=== PATIENT | female | born 1960 | race Caucasian/White ===

== ENCOUNTER → 2016-02-28 | Outpatient (CLI) | payer BC ==
[~2016-02-28] MED LIST: ASPEC81 PO; DILT120C11 PO
--- NOTE | 2016-02-28 12:46 | MAMMOGRAPHY REPORT ---
ULTRASOUND OF LEFT BREAST: 02/28/2016 CLINICAL HISTORY: Callback from screening mammogram for 2 circumscribed left breast masses. COMPARISON: Comparison is made to exams dated: 12/28/2014 mammogram, 12/22/2013 mammogram, 3 mammogram - [facility], and 09/23/2011 mammogram - [facility]. TECHNIQUE: Real-time targeted ultrasound of the left breast was performed. FINDINGS: Targeted ultrasound was performed of the left upper outer quadrant and left 6:00 breast, in the margo on of the mammographic masses seen on the screening mammogram. In the left breast at 2:00, 5 cm fro m the nipple, there is an oval circumscribed anechoic mass with a thin internal septation, measuring 9 x 4 x 8 mm. This corresponds with one of the circumscribed mammographic masses and is consistent with a benign cyst. In the left breast at 6:00, 4 cm from the nipple, there is an oval anechoic ci rcumscribed mass with a thin internal septation, measuring 11 x 3 x 9 mm. This corresponds with the other circumscribed mammographic mass and is consistent with a benign cyst. IMPRESSION: ACR BI-RADS CATEGORY 2: BENIGN The two mammographic masses in the left breast corresponding with benign cysts on ultrasound. There is no sonographic evidence of malignancy. A 1 year screening mammogram is recommended. The patient was verbally notified of the results. Jo Billings M.D. /:02/28/2016 08:32:04 Insurance Actuary: Jo Billings MD, [facility] letter sent: Normal 1/2 BI-RADS Code: ACR BI-RADS Category 2: Benign
== END | disposition home or self-care (01) ==
LOC: C.MAMM 08:00
PROVIDERS: ATTEND Obstetrics & Gynecology
DX: R92.8 Other abnormal and inconclusive findings on diagnostic imaging of breast (principal); N63 Unspecified lump in breast

== ENCOUNTER 2016-03-24 10:35 | Inpatient (IN) | payer BC ==
[~2016-03-24] VITALS: Ht 167.6 cm; Wt 78.4 kg
[2016-03-24 16:31] VITALS: BP 122/79; PULSE 101; TEMP 36.8; Ht 167.6 cm; Wt 78.4 kg
[2016-03-24] MEDS ORDERED: NURSING VERBAL MED ORDER ONE (16:45)
[2016-03-24] MEDS ORDERED: DILTIAZEM HCL 60 MG TAB PO SCH (17:15)
[2016-03-24] MEDS ORDERED: ONDANSETRON INJ 2 MG/ML 2 ML VIAL IV PRN (17:30)
[2016-03-24] MEDS ORDERED: ACETAMINOPHEN 325 MG TAB PO PRN (17:30)
--- NOTE | 2016-03-24 18:27 | DIAGNOSTIC IMAGING REPORT ---
TWO VIEW CHEST CLINICAL HISTORY: Atrial fibrillation. FINDINGS: PA and lateral chest radiographs are obtained. No prior studies are available for comparison at the time of dictation. The cardiomediastinal silhouette is unremarkable. The lungs appear hyperinflated and hyperlucent with flattening of the diaphragm and increased retrosternal clear space suggesting obstructive physiology. Nonspecific interstitial thickening is noted. There are bibasilar airspace opacities. The upper lobes appear clear. No pleural effusion is identified. There is no pneumothorax. The skeletal structures are osteopenic. The bony thorax appears intact. IMPRESSION: 1. Findings suggest obstructive physiology. 2. There are bibasilar airspace opacities. This could represent atelectasis, developing pneumonia, and/or aspiration pneumonitis Clinical correlation will be required. Radiographic follow-up to resolution is recommended. Electronically signed by: Stoney Aj M.D. 03/24/2016 6:26 PM Dictated Date/Time: 03/24/2016 6:24 PM
--- NOTE | 2016-03-24 19:10 | HISTORY & PHYSICAL EXAMINATION ---
DATE OF ADMISSION: 03/24/2016 CHIEF COMPLAINT: Palpitations. HISTORY OF PRESENT ILLNESS: Mrs. Cooley is a very pleasant 55-year-old woman with no real significant past medical history who was transferred from [facility] in the setting of SVT. The night prior to admission, the patient states that she developed pounding in her chest around midnight. This persisted for up to an hour but eventually she was able to fall asleep. She woke in the morning and still noted palpitations. While standing in the mirror getting ready for work she felt increased palpitations and questionable presyncope. As a result, she presented to the Emergency Department. In the ED she was initially in sinus tachycardia with frequent PACs, and heart rates in the 100s-110s. She had periods of irregular SVT up into the 140s to 160s for which she received IV diltiazem. Heart rate remained variable with heart rate occasionally in the 160s for which she was treated with adenosine 6 mg and later 12 mg. She also had brief episodes in the 200s and with this she became relatively hypotensive with systolic pressures in the 90s. The ED had prepared to cardiovert the patient, however, she eventually slowed on her own and then was placed on a diltiazem drip with rate control in the 90s to 100s. Eventually approximately 2 hours after her presentation she converted to sinus rhythm prior to transfer to [facility]. At time of arrival, the patient is feeling well. Denies any palpitations, chest pain or shortness of breath. Prior to this event she states she had been in the usual state of health. She did have a diarrheal illness approximately 1 week ago, which persisted for several days and led to a 6 pound weight loss. Otherwise, no new medications, no new habits and no other recent illnesses. She does state that for the last month or so she has had episodes at night where she feels warm all over with sweats. She had been attributing to potentially hot flashes associated with menopause. PAST MEDICAL HISTORY: Osteoarthritis. PAST SURGICAL HISTORY: Status post abdominal hysterectomy. FAMILY HISTORY: Mother had a history of coronary artery disease including requiring stents and bypass surgery in her early 60s. Otherwise, no premature coronary artery disease or other history of premature or sudden cardiac . 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 She is . She has 2 grown children. She rarely drinks alcohol and is a never smoker. Denies any illicit drugs. REVIEW OF SYSTEMS: Ten point review of systems was completed and otherwise negative or listed in HPI. PHYSICAL EXAMINATION: VITAL SIGNS: Temperature 36.8, pulse 101, respiratory rate is 18, her blood pressure is 122/79. GENERAL: The patient appears well, in no acute distress. HEENT: Her sclerae are anicteric. Oropharynx is clear. Mucous membranes are moist. NECK: Supple with no lymphadenopathy. LUNGS: Clear to auscultation bilaterally. CARDIAC: She has a regular rate and rhythm with no murmurs, rubs or gallops. ABDOMEN: Soft, nontender, nondistended with positive bowel sounds. EXTREMITIES: Warm. She has no significant lower extremity edema. She has intact distal pulses. SKIN: Shows no rashes or lesions. NEUROLOGIC: Cranial nerves II through XII are grossly intact. Remainder of exam is nonfocal. LABORATORY DATA: Lab work obtained from [facility] shows a white blood cell count of 5.2, hemoglobin 14.8, platelets of 222. She had a sodium of 141, potassium of 3.8, bicarbonate of 28, BUN of 12, creatinine of 1.0, calcium was 8.5. LFTs were within normal limits. TSH was 2.0. Free T4 was normal at 1.0. Magnesium was 2.2. EKGs: Presenting EKG shows sinus tachycardia with frequent PACs and a ventricular rate of 116. Subsequent EKGs show SVT irregular with possible underlying flutter or P waves, atrial fibrillation versus slowly flutter versus atrial tachycardia. Subsequent EKG shows irregular SVT at a rate of 165, question underlying T waves, question atrial tachycardia versus atrial flutter versus AFib. Telemetry strips reviewed from outside hospital, there is one episode of regular narrow-complex tachycardia with what appears to be a short RP interval, potentially consistent with a reentrant SVT. EKG at presentation here shows sinus rhythm with no dynamic ST changes in otherwise normal. IMPRESSION AND PLAN: 1. Supraventricular tachycardia. Patient with first episode of palpitations last night and again this morning noted to have supraventricular tachycardia on presentation at [facility]. I have reviewed patient's EKG and telemetry strips. The exact rhythm is unclear. Some EKGs are irregular and do appear to be consistent with atrial fibrillation; however, there is suggestion of underlying P or flutter waves potentially suggestive of atrial tachycardia versus slow atrial flutter. In addition, there is one telemetry strip potentially consistent with a faster reentrant tachycardia. Regardless of exact diagnosis management going forward will be similar. She has converted to normal sinus rhythm and will plan to continue on p.o. diltiazem, will give 60 mg p.o. now and continue with 30 mg q.i.d. likely with consolidation to daily dosing prior to discharge. Will check a chest x-ray and plan for echocardiogram in the morning. Assuming echo largely unremarkable, have assured the patient that this SVT is likely benign and can be followed as an outpatient. Likely will discharge on diltiazem and low dose aspirin with plan for cardiology follow-up. ALEXIA
[2016-03-24 20:19] VITALS: BP 102/71; PULSE 91; TEMP 36.8; O2SAT 97
[2016-03-24] MEDS: SODIUM CHLORIDE 0.9% 1000ML 1,000 ML IV SCH (21:13)
[2016-03-24] MEDS: DILTIAZEM HCL 30 MG TAB PO SCH (21:14)
[2016-03-25] VITALS: BP 102/70; PULSE 88; TEMP 36.6; O2SAT 98
[2016-03-25 04:00] VITALS: BP 113/73; PULSE 85; TEMP 36.5; O2SAT 98
[2016-03-25 07:05] LABS: BASO % 1.1 %; BASO ABS # 0.05 K/uL (0-0.2); COMPLETE YES; EOS % 2.9 %; HEMATOCRIT 40.4 % (37-47); LYMPH % 36.2 %; LYMPH ABS # 1.62 K/uL (1.2-3.4); MEAN CELL VOLUME 87.6 fL (80-100); MEAN CORPUSCULAR HEMOGLOBIN 29.1 pg (25-34); MEAN CORPUSCULAR HGB CONC 33.2 g/dl (32-36); MEAN PLATELET VOLUME 9.7 fL (7.4-10.4); MONO % 13.4 %; NEUT % 46.4 %; PLATELET COUNT 209 K/uL (130-400); RED BLOOD COUNT 4.61 M/uL (4.2-5.4); WHITE BLOOD COUNT 4.47 K/uL (4.8-10.8)
[2016-03-25 07:41] LABS: ALT/SGPT 33 U/L (12-78); AST/SGOT 13 U/L (15-37); BLOOD UREA NITROGEN 10 mg/dl (7-18); BUN/CREATININE RATIO 13.5 (10-20); CALCIUM 8.8 mg/dl (8.5-10.1); CARBON DIOXIDE 26 mmol/L (21-32); CHLORIDE 110 mmol/L (98-107); CREATININE 0.77 mg/dl (0.60-1.20); GLUCOSE 92 mg/dl (70-99); MAGNESIUM 2.3 mg/dl (1.8-2.4); SODIUM 144 mmol/L (136-145)
[2016-03-25 07:43] LABS: ALKALINE PHOSPHATASE 60 U/L (45-117)
[2016-03-25 08:24] VITALS: BP 114/78; PULSE 82; TEMP 36.7; O2SAT 100
[2016-03-25] MEDS: DILTIAZEM HCL 30 MG TAB PO SCH ×2 (09:48→12:38)
[2016-03-25] MEDS: SODIUM CHLORIDE 0.9% 1000ML 1,000 ML IV SCH (09:48)
--- NOTE | 2016-03-25 09:55 | ECHOCARDIOGRAM REPORT ---
*NOTICE TO RECEIVING REPUBLICAN AGENCY This information is strictly Confidential and protected under [place] law. [place] law prohibits you from making any further disclosure of this information unless further disclosure is expressly permitted by the written consent of the person to whom it pertains or is authorized by law. A general authorization for the release of medical or other information is not sufficient for this purpose. Hospital accepts no responsibility if the information is made available to any other person, INCLUDING THE PATIENT. Interpretation Summary * Name: ALEXANDRIA CHISHOLM Study Date: 03/25/2016 08:20 AM BP: 113/73 mmHg * Patient Location: C.2T\S\E220\S\1 HR: 85 * : 1960 (M/d/yyyy) Gender: Female Height: 65 in * Age: 55 yrs Ethnicity: CA Weight: 174 lb * Ordering Physician: Arnold Urbano * Performed By: Dipika Shen RDCS * * Reason For Study: Supraventricular Tachycardia * BSA: 1.9 m2 * -- Conclusions -- * 1. Normal LV size and wall thickness. * 2. Normal LV function. LVEF 55-60%. No regional wall motion abnormalities. * 3. Normal RV size and function. * 4. Mitral valve/chordal structures thickened but no clear valvular pathology. * 5. Normal estimated CVP. * 6. No prior studies for comparison. Procedure Details * A complete two-dimensional transthoracic echocardiogram was performed (2D, M-mode, Doppler and color flow Doppler). Left Ventricle * The left ventricle is normal in size. * There is normal left ventricular wall thickness. * Ejection Fraction = 55-60%. Right Ventricle * The right ventricle is grossly normal size. * The right ventricular systolic function is normal as assessed by tricuspid annular plane systolic excursion (TAPSE) (normal >1.5 cm). Atria * The left atrial size is normal. * Right atrial size is normal. * No ASD detected; PFO is not assessed. Mitral Valve * The mitral valve leaflets appear thickened, but open well. * valve chordae thickened * There is no mitral valve stenosis. * Significant mitral regurgitation is absent. Aortic Valve * The aortic valve opens well. * The aortic valve is trileaflet. * No hemodynamically significant valvular aortic stenosis. * There is no significant aortic regurgitation. Pulmonic Valve * The pulmonary valve is inadequately visualized, but the Doppler data is adequate for interpretation. * Pulmonic stenosis is absent. * There is no pulmonic valvular regurgitation. Great Vessels * The aortic root and proximal ascending aorta are normal sized. * No Doppler or imaging evidence of an aortic coarctation. Pericardium/Pleural * There is no pericardial effusion. Great Vessels * Normal inferior vena cava size and collapsability with sniff indicates a normal right atrial pressure of 3 mmHg MMode 2D Measurements and Calculations IVSd 0.83 cm IVSs 0.99 cm LVIDd 4.2 cm LVIDs 2.4 cm LVPWd 0.71 cm LVPWs 1.4 cm IVS/LVPW 1.2 FS 42.8 % EDV(Teich) 79.9 ml ESV(Teich) 20.6 ml EF(Teich) 74.2 % EDV(cubed) 75.6 ml ESV(cubed) 14.2 ml EF(cubed) 81.3 % % IVS thick 19.3 % % LVPW thick 96.1 % LV mass(C)d 97.7 grams LV mass(C)dI 52.4 grams/m\S\2 LV mass(C)s 81.2 grams LV mass(C)sI 43.6 grams/m\S\2 SV(Teich) 59.3 ml SI(Teich) 31.8 ml/m\S\2 SV(cubed) 61.5 ml SI(cubed) 33.0 ml/m\S\2 Ao root diam 2.9 cm Ao root area 6.7 cm\S\2 LA dimension 2.9 cm LA/Ao 10 LVAd ap4 25.7 cm\S\2 LVLd ap4 8.2 cm EDV(MOD-sp4) 69.8 ml EDV(sp4-el) 68.6 ml LVAs ap4 15.8 cm\S\2 LVLs ap4 6.9 cm ESV(MOD-sp4) 34.0 ml ESV(sp4-el) 30.7 ml EF(MOD-sp4) 51.3 % EF(sp4-el) 55.2 % LVAd ap2 24.5 cm\S\2 LVLd ap2 8.8 cm EDV(MOD-sp2) 59.6 ml EDV(sp2-el) 58.0 ml LVAs ap2 15.1 cm\S\2 LVLs ap2 7.6 cm ESV(MOD-sp2) 28.2 ml ESV(sp2-el) 25.4 ml EF(MOD-sp2) 52.6 % EF(sp2-el) 56.1 % LVLd %diff 7.3 % EDV(MOD-bp) 66.9 ml LVLs %diff 8.6 % ESV(MOD-bp) 32.4 ml EF(MOD-bp) 51.6 % SV(MOD-sp4) 35.8 ml SI(MOD-sp4) 19.2 ml/m\S\2 SV(MOD-sp2) 31.4 ml SI(MOD-sp2) 16.8 ml/m\S\2 SV(MOD-bp) 34.5 ml SI(MOD-bp) 18.5 ml/m\S\2 SV(sp4-el) 37.9 ml SI(sp4-el) 20.3 ml/m\S\2 SV(sp2-el) 32.5 ml SI(sp2-el) 17.5 ml/m\S\2 Doppler Measurements and Calculations MV E max cal 58.7 cm/sec MV A max cal 74.1 cm/sec MV E/A 0.79 MV dec time 0.23 sec Ao V2 max 131.9 cm/sec Ao max PG 7.0 mmHg Ao max PG (full) 1.4 mmHg LV V1 max PG 5.6 mmHg LV V1 max 117.9 cm/sec PA V2 max 88.1 cm/sec PA max PG 3.1 mmHg
[2016-03-25 10:59] VITALS: O2SAT 100
[2016-03-25 12:12] VITALS: BP 99/68; PULSE 88; TEMP 36.5; O2SAT 99
[2016-03-25] MEDS ORDERED: DILT120C11 PO (12:15)
[2016-03-25] MEDS ORDERED: ASPEC81 PO (12:15)
--- NOTE | 2016-03-25 12:18 | Discharge Instructions ---
Discharge Instructions Admission Reason for Admission: SVT Discharge Discharge Diagnosis / Problem: SVT Discharge Goals Goal(s): Specific goals (Return to normal activities. No futher palpitations) Activity Recommendations Activity Limitations: resume your previous activity Lifting Limitations: none Exercise/Sports Limitations: none May Resume Sexual Activity: when tolerated Shower/Bathe: no limitations Driving or Machine Use: no limitations None . Instructions / Follow-Up Instructions / Follow-Up Follow-up with primary care in next 1-2 weeks Follow-up with Dr. Urbano Cardiology in 1 month. Current Hospital Diet Patient's current hospital diet: AHA Diet (Heart Healthy) Discharge Diet Recommended Diet: Regular Diet, Low Fat Diet Procedures Procedures Performed: None Pending Studies Studies pending at discharge: no Work Instructions Return To Work: 1 day Medical Emergencies . Who to Call and When: Medical Emergencies: If at any time you feel your situation is an emergency, please call 911 immediately. . Non-Emergent Contact Non-Emergency issues call your: Primary Care Provider, [employer] [facility] Contact Number: Dr. Urbano [phone] Call Non-Emergent contact if: you have any medication questions Persistent palpitations, light headedness. . . "Provider Documentation" section prepared by Yobany Urbano. VTE Core Measure Inpt VTE Proph given/why not?: Treatment not indicated
--- NOTE | 2016-03-25 12:33 | Discharge Summary ---
Discharge Summary Admission Date: Mar 24, 2016 at 16:24 Discharge Date: Mar 25, 2016 Discharge Disposition: Home Principal Diagnosis: SVT Procedures: Echocardiogram 03/25/2016 - Normal biventricular function. No significant valvular abnormalities. 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 Cooley is a very pleasant 55-year-old woman with no real significant past medical history who was transferred from [facility] in the setting of SVT. Palpitations began the night prior to admission without clear precipitants. Persistent palpitations the next morning accompanied by presyncope. Presented to [place] ED where noted to be in SVT. Multiple strips and ECGs obtained. Exact rhythm unclear but after review here felt most consistent with Afib vs slow aflutter vs atrial tachycardia. In ED received diltiazem, and adenosine. Post adenosine had brief episode of regular SVT to 200s with relative hypotension to 90s. Eventually rate better controlled on diltiazem drip. Converted to sinus rhythm prior to transfer. At [facility] has remained in sinus rhythm and asymptomatic. She was transitioned to PO diltiazem. No further events on telemetry. Electrolytes, TSH unremarkable. Chest xray suggestive of obstructive physiology with questionable bibasilar atelectasis. Echo this AM showed normal biventricular function without significant valvular pathology. In the setting of structurally normal heart, SVT thought to be benign. Will continue on PO Diltiazem and in the setting of possible AFib without other comorbidities will start on aspirin. Total Time Spent: Greater than 30 minutes This includes examination of the patient, discharge planning, medication reconciliation, and communication with other providers. Discharge Instructions Please refer to the electronic Patient Visit Report (Discharge Instructions) for additional information. Follow-Up Follow-up with PCP 1-2 weeks. Follow-up with Dr. Urbano, Cardiology in 1 month.
== END 2016-03-25 13:00 | disposition home or self-care (01) | DRG 310 ==
LOC: C.2T 16:24
PROVIDERS: ADMIT Internal Medicine Interventional Cardiology; ATTEND Internal Medicine Interventional Cardiology
DX: I47.1 Supraventricular tachycardia (principal); I95.9 Hypotension, unspecified; I48.91 Unspecified atrial fibrillation; M19.90 Unspecified osteoarthritis, unspecified site; Z82.49 Family history of ischemic heart disease and other diseases of the circulatory system

== ENCOUNTER 2016-03-26 11:55 | Emergency (ER) | payer BC ==
[~2016-03-26] VITALS: Ht 167.6 cm; Wt 80.6 kg
[2016-03-26 12:02] VITALS: TEMP 36.5; Ht 167.6 cm; Wt 80.6 kg
--- NOTE | 2016-03-26 13:10 | EMERGENCY ROOM VISIT NOTE ---
History Report prepared by Gill: Fahad Vanessa Under the Supervision of: Dr. Calderon Bey M.D. First contact with patient: 12:38 Chief Complaint: CARDIAC ASSESSMENT Stated Complaint: CHEST PAIN, DIZZY, LIGHTHEADED, NAUSEA Nursing Triage Summary: Patient states was discharged yesterday after being admitted for SVT on Wednesday. Patient states took cardizem as prescribed. Patient states feels lightheaded and jittery this morning. Patient states had sharp, jabbing left chest pain. Patients coworker noticed she was pale. History of Present Illness The patient is a 55 year old female who presents to the Emergency Room with complaints of episodes of chest pain that occurred prior to arrival this morning. The patient notes that 2 days ago, she almost passed out and was lightheaded. She went to [facility], and was admitted for SVT. This was the first time she had ever had that. 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 She was discharged yesterday, and was feeling okay. The patient was prescribed with Cardizem, and she took it as prescribed, including last night and this morning. The patient felt lightheaded this morning, and when she got to work, she began to feel jittery and hot as well. The patient called Dr. Urbano, and while she was talking to him, the patient got a little jabbing chest pain. She went to the bathroom, and got another sharp jabbing pain. Her coworkers noted that the patient was very white. Currently, the patient does not have any more chest pain. Her chest pain never lasted more than a few seconds. Source of History: patient Onset: Prior to arrival this morning Position: chest (pain) Quality: sharp (and jabbing) Timing: other (episodes) Note: Associated symptoms: Lightheadedness, jittery, feeling hot, white skin. Review of Systems See HPI for pertinent positives & negatives. A total of 10 systems reviewed and were otherwise negative. Past Medical & Surgical Medical Problems: (1) SVT (supraventricular tachycardia) Family History FH: cancer FH: heart disease Social History Smoking Status: Never Smoker Marital Status: Housing Status: lives with family Occupation Status: employed Current/Historical Medications Scheduled Aspirin (Aspirin EC Low Dose), 81 MG PO DAILY Diltiazem Hcl (Tiazac 120 Mg), 120 MG PO DAILY Allergies Coded Allergies: No Known Allergies (Unverified , 03/24/16) Physical Exam Vital Signs Date Time Temp Pulse Resp B/P Pulse Ox O2 Delivery O2 Flow Rate FiO2 03/26/16 14:19 73 16 107/62 96 03/26/16 14:00 73 16 107/62 96 Room Air 03/26/16 13:25 83 113/67 82 112/89 96 133/84 03/26/16 12:41 103 03/26/16 12:22 93 Room Air 03/26/16 12:02 36.5 92 20 144/81 97 Room Air Physical Exam CONSTITUTIONAL: Mildly anxious. HEENT: No icterus, moist mucous membranes NECK: No meningismus, trachea is midline. CARDIOVASCULAR: Regular rate, normal perfusion RESPIRATORY: Unlabored breathing. Clear to auscultation. GASTROINTESTINAL: Non-tender GENITOURINARY: No flank tenderness MUSCULOSKELETAL: Full range of motion NEUROLOGIC: No acute gross focal deficits. PSYCHIATRIC: Normal affect SKIN: Normal for ethnicity. Medical Decision & Procedures ER Provider Diagnostic Interpretation: X-ray results as stated below per interpretation by me and the radiologist. SINGLE VIEW CHEST CLINICAL HISTORY: Palpitations. FINDINGS: An AP, portable, upright chest radiograph is compared to study dated 03/24/2016. The examination is degraded by portable technique and patient rotation. No prior studies are available for comparison at the time of dictation. The cardiomediastinal silhouette is unremarkable. The lungs appear hyperinflated and hyperlucent with flattening of the diaphragm and suggesting obstructive physiology. Nonspecific interstitial thickening is noted. There are bibasilar airspace opacities. The upper lobes appear clear. No pleural effusion is identified. There is no pneumothorax. The skeletal structures are osteopenic. The bony thorax appears intact. IMPRESSION: Findings suggest emphysema. There is no acute cardiopulmonary abnormality Electronically signed by: Stoney Aj M.D. 03/26/2016 1:31 PM Dictated Date/Time: 03/26/2016 1:29 PM Laboratory Results 03/26/16 13:05 Red Blood Count 5.11, Mean Corpuscular Volume 86.5, Mean Corpuscular Hemoglobin 29.4, Mean Corpuscular Hemoglobin Concent 33.9, Mean Platelet Volume 9.5, Neutrophils (%) (Auto) 66.3, Lymphocytes (%) (Auto) 22.1, Monocytes (%) (Auto) 7.8, Eosinophils (%) (Auto) 2.9, Basophils (%) (Auto) 0.7, Neutrophils # (Auto) 3.72, Lymphocytes # (Auto) 1.24, Monocytes # (Auto) 0.44, Eosinophils # (Auto) 0.16, Basophils # (Auto) 0.04 03/26/16 13:05 Test 03/26/16 13:05 White Blood Count 5.61 K/uL (4.8-10.8) Red Blood Count 5.11 M/uL (4.2-5.4) Hemoglobin 15.0 g/dL (12.0-16.0) Hematocrit 44.2 % (37-47) Mean Corpuscular Volume 86.5 fL (80-100) Mean Corpuscular Hemoglobin 29.4 pg (25-34) Mean Corpuscular Hemoglobin Concent 33.9 g/dl (32-36) Platelet Count 240 K/uL (130-400) Mean Platelet Volume 9.5 fL (7.4-10.4) Neutrophils (%) (Auto) 66.3 % Lymphocytes (%) (Auto) 22.1 % Monocytes (%) (Auto) 7.8 % Eosinophils (%) (Auto) 2.9 % Basophils (%) (Auto) 0.7 % Neutrophils # (Auto) 3.72 K/uL (1.4-6.5) Lymphocytes # (Auto) 1.24 K/uL (1.2-3.4) Monocytes # (Auto) 0.44 K/uL (0.11-0.59) Eosinophils # (Auto) 0.16 K/uL (0-0.5) Basophils # (Auto) 0.04 K/uL (0-0.2) RDW Standard Deviation 40.6 fL (36.4-46.3) RDW Coefficient of Variation 12.6 % (11.5-14.5) Immature Granulocyte % (Auto) 0.2 % Immature Granulocyte # (Auto) 0.01 K/uL (0.00-0.02) Anion Gap 9.0 mmol/L (3-11) Est Creatinine Clear Calc Drug Dose 81.0 ml/min Estimated GFR () 89.4 Estimated GFR (Non- 77.1 BUN/Creatinine Ratio 13.4 (10-20) Calcium Level 9.6 mg/dl (8.5-10.1) Magnesium Level 2.4 mg/dl (1.8-2.4) Troponin I < 0.015 ng/ml (0-0.045) Labs reviewed by ED physician. ECG Indication: chest pain Rate (beats per minute): 94 Rhythm: normal sinus Findings: no ectopy, other (normal axis, nonspecific-ST findings) ED Course 1239: Past medical records reviewed. The patient was evaluated in room A4B. A complete history and physical examination was performed. 1405: I reevaluated the patient and she is resting comfortably. The patient verbally expressed understanding and agreement of the treatment plan. The patient will be discharged. Medical Decision Differential diagnoses include: palpitations, dysrhythmia, orthostasis. If she 5-year-old presents into the emergency department for evaluation of palpitations lasting only a second 2 at a time today. She notes recent admission for SVT discharged yesterday and Cardizem. She is occasionally lightheaded without clear ameliorating or exacerbating factors. She's concerned she may have recurrence of her dysrhythmia or some other abnormality. Symptoms are clearly not exertional nor pleuritic. She notes a vague generalized sense of unwellness or lightheadedness with occasional "sharp" palpitation. She is asymptomatic on my evaluation. EKG, chest x-ray and troponin all within normal limits. Orthostatics negative. Patient discharged in good condition Impression Primary Impression: Palpitations Scribe Attestation The scribe's documentation has been prepared under my direction and personally reviewed by me in its entirety. I confirm that the note above accurately reflects all work, treatment, procedures, and medical decision making performed by me. Departure Information Dispostion Home / Self-Care Referrals Karmen Briscoe M.D. (PCP) Forms IMPORTANT VISIT INFORMATION Patient Instructions ED Palpitations, [facility]
[2016-03-26 13:18] LABS: BASO % 0.7 %; BASO ABS # 0.04 K/uL (0-0.2); COMPLETE YES; EOS % 2.9 %; HEMATOCRIT 44.2 % (37-47); IG% 0.2 %; LYMPH % 22.1 %; LYMPH ABS # 1.24 K/uL (1.2-3.4); MEAN CELL VOLUME 86.5 fL (80-100); MEAN CORPUSCULAR HEMOGLOBIN 29.4 pg (25-34); MEAN CORPUSCULAR HGB CONC 33.9 g/dl (32-36); MEAN PLATELET VOLUME 9.5 fL (7.4-10.4); MONO % 7.8 %; NEUT % 66.3 %; PLATELET COUNT 240 K/uL (130-400); RED BLOOD COUNT 5.11 M/uL (4.2-5.4); WHITE BLOOD COUNT 5.61 K/uL (4.8-10.8)
--- NOTE | 2016-03-26 13:32 | DIAGNOSTIC IMAGING REPORT ---
SINGLE VIEW CHEST CLINICAL HISTORY: Palpitations. FINDINGS: An AP, portable, upright chest radiograph is compared to study dated 03/24/2016. The examination is degraded by portable technique and patient rotation. No prior studies are available for comparison at the time of dictation. The cardiomediastinal silhouette is unremarkable. The lungs appear hyperinflated and hyperlucent with flattening of the diaphragm and suggesting obstructive physiology. Nonspecific interstitial thickening is noted. There are bibasilar airspace opacities. The upper lobes appear clear. No pleural effusion is identified. There is no pneumothorax. The skeletal structures are osteopenic. The bony thorax appears intact. IMPRESSION: Findings suggest emphysema. There is no acute cardiopulmonary abnormality Electronically signed by: Stoney Aj M.D. 03/26/2016 1:31 PM Dictated Date/Time: 03/26/2016 1:29 PM
[2016-03-26 13:35] LABS: BLOOD UREA NITROGEN 12 mg/dl (7-18); CREATININE 0.86 mg/dl (0.60-1.20); GLUCOSE 91 mg/dl (70-99)
[2016-03-26 13:36] LABS: BUN/CREATININE RATIO 13.4 (10-20); CALCIUM 9.6 mg/dl (8.5-10.1); CARBON DIOXIDE 25 mmol/L (21-32); CHLORIDE 107 mmol/L (98-107); MAGNESIUM 2.4 mg/dl (1.8-2.4); POTASSIUM 4.1 mmol/L (3.5-5.1); SODIUM 141 mmol/L (136-145)
[2016-03-26 14:19] VITALS: BP 107/62; PULSE 73; O2SAT 96
== END 2016-03-26 14:20 | disposition home or self-care (01) ==
LOC: C.EDB 11:57 → C.EDA 14:20
DX: R00.2 Palpitations (principal); R42 Dizziness and giddiness; Z79.82 Long term (current) use of aspirin

== ENCOUNTER → 2016-05-11 | Outpatient (CLI) | payer BC ==
[2016-05-11 17:45] LABS: HEMATOCRIT 43.3 % (37-47); MEAN CELL VOLUME 87.7 fL (80-100); MEAN CORPUSCULAR HEMOGLOBIN 29.1 pg (25-34); MEAN CORPUSCULAR HGB CONC 33.3 g/dl (32-36); MEAN PLATELET VOLUME 9.8 fL (7.4-10.4); PLATELET COUNT 305 K/uL (130-400); RED BLOOD COUNT 4.94 M/uL (4.2-5.4); WHITE BLOOD COUNT 7.67 K/uL (4.8-10.8)
[2016-05-11 18:03] LABS: ALT/SGPT 62 U/L (12-78); AST/SGOT 20 U/L (15-37); BLOOD UREA NITROGEN 17 mg/dl (7-18); BUN/CREATININE RATIO 19.2 (10-20); CALCIUM 9.1 mg/dl (8.5-10.1); CARBON DIOXIDE 30 mmol/L (21-32); CHLORIDE 104 mmol/L (98-107); GLUCOSE 92 mg/dl (70-99); POTASSIUM 4.1 mmol/L (3.5-5.1); SODIUM 140 mmol/L (136-145)
[2016-05-11 18:13] LABS: ALB/GLOB RATIO 1.2 (0.9-2); ALKALINE PHOSPHATASE 70 U/L (45-117)
== END | disposition home or self-care (01) ==
LOC: C.LAB1850 16:07
PROVIDERS: ATTEND Internal Medicine
DX: R23.2 Flushing (principal)

== ENCOUNTER → 2017-02-23 | Outpatient (CLI) | payer BC ==
[~2017-02-23] MED LIST changes: -ASPEC81 PO; +ASPI-320 PO
--- NOTE | 2017-02-24 14:57 | MAMMOGRAPHY REPORT ---
BILATERAL DIGITAL SCREENING MAMMOGRAM TOMOSYNTHESIS WITH CAD: 02/23/2017 CLINICAL HISTORY: Routine screening. Patient has no complaints. TECHNIQUE: Breast tomosynthesis in addition to standard 2D mammography was performed. Current study was also evaluated with a Computer Aided Detection (CAD) system. COMPARISON: Comparison is made to exams dated: 02/28/2016 ultrasound, 02/19/2016 mammogram, 12/28/2014 mammogram, 12/22/2013 mammogram, 12/21/2012 mammogram, and 12/16/2012 mammogram - [facility]. BREAST COMPOSITION: There are scattered areas of fibroglandular density in both breasts. FINDINGS: There are stable benign circumscribed masses in the 2:00 and 6:00 left breast, previously d ocumented to represent simple cysts on ultrasound. No new suspicious mass, architectural distortion or cluster of microcalcifications is seen. IMPRESSION: ACR BI-RADS CATEGORY 1: NEGATIVE There is no mammographic evidence of malignancy. A 1 year screening mammogram is recommended. The pa tient will receive written notification of the results. Approximately 10% of breast cancers are not detected with mammography. A negative mammographic report should not delay biopsy if a clinically suggestive mass is present. Sandie King M.D. ay/:02/23/2017 16:39:39 Bridge Contractor: Sultana MCCRACKEN)(M), [facility] letter sent: Normal 1/2 BI-RADS Code: ACR BI-RADS Category 1: Negative
== END | disposition home or self-care (01) ==
LOC: C.MAMM 14:06
PROVIDERS: ATTEND Obstetrics & Gynecology
DX: Z12.31 Encounter for screening mammogram for malignant neoplasm of breast (principal)